=== PATIENT | female | born 1955 | race Caucasian/White ===

== ENCOUNTER 2024-02-05 18:21 | Emergency (ER) | payer MEDICARE ==
[~2024-02-05] VITALS: Ht 170.2 cm; Wt 116.0 kg
[~2024-02-05 18:21] MED LIST: ALBUTEROL0.5 % IN; ALLOPURINOL100 MG PO; ALLOPURINOL200 MG PO; AMLODIPINE5 MG PO; ASPIRIN LOW81 M1 PO; BACLOFEN5 MG PO; BIAXIN500 MG OR; CETIRIZINE10 MG PO; CLONIDINE0.1 MG PO; COLCHICINE PO; DOXYCYCL HYC100 MG PO; FENOFIBRATE54 MG PO; FLEXERIL PO; FLONASE NASAL50 MCG; HYCODAN1 ML OR; HYDROCHLOROT25 MG OR; HYDROCHLOROT25 MG PO; INDOMETHACIN50 MG PO; LIPITOR80 M1 PO; LISINOPRIL10 MG PO; LOPRESSOR25 M1 PO; LORTAB5 PO; LOSARTAN POT100 MG PO; LOSARTAN POT25 MG PO; LOSARTAN POT50 MG PO; METFORMIN500 M1 PO; METFORMIN500 M2 PO; METFORMIN500 MG PO; NAPROSYN500 MG PO; NO; NORVASC PO; NYQUI1 OR; OTC SINUS MEDICATION; PLAVIX75 MG PO; PRAVASTATIN SOD10 MG PO; PREDNISONE20 MG OR; PREDNISONE20 MG PO; PROZAC20 MG PO; SOLU-MEDROL125 MG IM; SYMBICORT1 AE1 IN; ULTRAM50 M1 PO; WELLBUTRIN100 M2 PO; ZITHROMAX500 MG PO; [UNRECOGNIZED DRUG - OTHER]; [UNRECOGNIZED DRUG - OTHER] OR; allo PO
[2024-02-05 18:50] VITALS: BP 160/71
[2024-02-05] MEDS ORDERED: BACTRIM DS1 TAB PO (19:08)
[2024-02-05] MEDS ORDERED: ACETAMINOPHEN 500 MG TAB PO ONE (19:10)
[2024-02-05] MEDS ORDERED: SULFAMETHOXAZOLE W/TRIMETHOPRI 1 COMBO TAB PO ONE (19:10)
[2024-02-05 20:23] VITALS: BP 160/71
== END 2024-02-05 20:25 | disposition home or self-care (01) ==
LOC: ED 18:21
DX: L03.115 Cellulitis of right lower limb (principal); I10 Essential (primary) hypertension; I34.1 Nonrheumatic mitral (valve) prolapse; F17.200 Nicotine dependence, unspecified, uncomplicated; Z88.0 Allergy status to penicillin